=== PATIENT | female | born 1985 | race Hispanic/Latino ===

== ENCOUNTER 2017-02-10 07:30 | Emergency (ER) | payer BC ==
[2017-02-10 07:52] VITALS: TEMP 97.2
[2017-02-10] MEDS: Sodium Chloride 0.9% 1,000 ML IV STA ×2 (08:34→10:46)
--- NOTE | 2017-02-10 08:41 | ED PDOC ---
Syncope/Near Syncope/Dizziness Time Seen by Provider: 02/10/17 07:40 Chief Complaint (Nursing): Syncope Chief Complaint (Provider): Syncope History Per: Patient History/Exam Limitations: no limitations Onset/Duration Of Symptoms: Mins Current Symptoms Are (Timing): Gone Now Number Of Syncopal Episodes: 1 Activity At Onset Of Symptoms: Sitting Fall Associated With With Symptoms: No Additional Complaint(s): 31yo female with no known past medical history, presents to the ED for evaluation after a syncopal episode prior to arrival. Patient reports she was standing on the bus and "felt it coming on" and when she sat down, she had a syncopal episode. Patient denies any head injury due to the syncopal episode. Of note, patient states she has been feeling nauseous since yesterday and did not have much PO food intake yesterday. She denies any fever, chills, vomiting, headache, neck pain, chest pain, shortness of breath. Of note, patient is currently taking oral contraceptive pills. No other complaints. Past Medical History Reviewed: Historical Data, Nursing Documentation, Vital Signs Vital Signs: Last Vital Signs Temp 97.2 F L 02/10/17 07:44 Pulse 74 02/10/17 07:44 Resp 16 02/10/17 07:44 BP 95/56 L 02/10/17 07:44 Pulse Ox 100 02/10/17 07:44 - Medical History PMH: No Chronic Diseases - Surgical History Surgical History: Tonsillectomy - Family History Family History: States: No Known Family Hx - Living Arrangements Living Arrangements: With Family - Social History Current smoker - smoking cessation education provided: No Ex-Smoker (has not smoked in the last 12 months): No Alcohol: Social Drugs: Denies - Home Medications Home Medications: Ambulatory Orders Medication Instructions Recorded Acetaminophen/Oxycodone Hydr 1 tab PO TID PRN #6 tab 12/24/13 [Percocet 325 mg-5 mg] Nitrofurantoin Macrocrystals 100 mg PO BID #10 cap 12/24/13 [Macrobid] Phenazopyridine HCl [Pyridium] 100 mg PO BID PRN 5 Days tab 12/24/13 - Allergies Allergies/Adverse Reactions: Allergies Allergy/AdvReac Type Severity Reaction Status Date / Time Sulfa (Sulfonamide Allergy RASH Verified 02/10/17 07:44 Antibiotics) Review of Systems ROS Statement: Except As Marked, All Systems Reviewed And Found Negative Constitutional: Negative for: Fever, Chills Cardiovascular: Negative for: Chest Pain Respiratory: Negative for: Shortness of Breath Gastrointestinal: Positive for: Nausea. Negative for: Vomiting Musculoskeletal: Negative for: Neck Pain Neurological: Positive for: Other (syncopal episode) Physical Exam - Reviewed Nursing Documentation Reviewed: Yes Vital Signs Reviewed: Yes - Physical Exam Appears: Positive for: Non-toxic, No Acute Distress Skin: Positive for: Warm, Dry (dry lips) Eye Exam: Positive for: Normal appearance, EOMI, PERRL Neck: Positive for: Supple Cardiovascular/Chest: Positive for: Regular Rate, Rhythm Respiratory: Positive for: Normal Breath Sounds. Negative for: Respiratory Distress Neurologic/Psych: Positive for: Alert, Oriented. Negative for: Motor/Sensory Deficits - Laboratory Results Result Diagrams: 02/10/17 08:45 02/10/17 08:45 - ECG ECG: Positive for: Interpreted By Me, Viewed By Me ECG Rhythm: Positive for: Normal QRS, Normal ST Segment, Sinus Rhythm. Negative for: ST/T Changes Rate: 71 O2 Sat by Pulse Oximetry: 100 (RA) Pulse Ox Interpretation: Normal Medical Decision Making Medical Decision Making: Time: 802 Impression: Dehydration Plan: -- Labs -- IV Fluids -- Zofran 4 mg PO Reassess Scribe Attestation: Documented by Jackie Velasco acting as a scribe for Sariah Dejesus MD. Provider Attestation: All medical record entries made by the Scribe were at my direction and personally dictated by me. I have reviewed the chart and agree that the record accurately reflects my personal performance of the history, physical exam, medical decision making, and the department course for this patient. I have also personally directed, reviewed, and agree with the discharge instructions and disposition. patient is feeling better. She has been able to urinate and does not feel dizzy when she sits up. Disposition - Clinical Impression Clinical Impression: Dehydration - Patient ED Disposition Is Patient to be Admitted: No Doctor Will See Patient In The: Office Counseled Patient/Family Regarding: Diagnosis, Need For Followup - Disposition Disposition: Routine/Home Disposition Time: 12:00 Condition: IMPROVED Instructions: Dehydration (ED) Forms: [facility] (Fijian) - POA Present On Arrival: None
[2017-02-10 09:01] LABS: BASO % 0.6 % (0.0-2.0); EOS # 0.1 K/uL (0.0-0.7); EOS % 1.8 % (0.0-4.0); HEMATOCRIT 41.5 % (34.0-47.0); LYMPH # 0.9 K/uL (1.0-4.3); LYMPH % 17.8 % (20.0-40.0); MEAN CELL VOLUME 90.5 fl (81.0-99.0); MEAN CORPUSCULAR HEMOGLOBIN 30.1 pg (27.0-31.0); MEAN CORPUSCULAR HGB CONC 33.2 g/dL (33.0-37.0); MEAN PLATELET VOLUME 8.5 fl (7.2-11.7); MONO # 0.4 K/uL (0.0-0.8); MONO % 8.4 % (0.0-10.0); NEUT # 3.5 K/uL (1.8-7.0); NEUT % 71.4 % (50.0-75.0); NRBC % 0.1 % (0.0-0.0); RED CELL DISTRIBUTION WIDTH 12.1 % (11.5-14.5)
[2017-02-10 09:12] LABS: ALCOHOL SERUM < 10 mg/dl (0-10); BLOOD UREA NITROGEN 10 mg/dl (7-17); CALCIUM 8.2 mg/dL (8.4-10.2); CARBON DIOXIDE 25 mmol/L (22-30); CHLORIDE 103 mmol/L (98-107); GFR AFRICAN-AMERICAN > 60; GLUCOSE,RANDOM 91 mg/dL (65-105); POTASSIUM 3.9 MMOL/L (3.6-5.0); SODIUM 137 mmol/l (132-148)
--- NOTE | 2017-02-10 11:41 | CARD ---
APPROVED REPORT EKG Measurement Heart [id number] ID [id number] <Conclusion> Normal sinus rhythm Rightward axis Borderline ECG
[2017-02-10 12:05] VITALS: BP 96/58; RESP 20
[2017-02-10 12:46] VITALS: PULSE 71; O2SAT 100
== END 2017-02-10 13:00 | disposition home or self-care (01) ==
LOC: H.ER 07:30
DX: E86.0 Dehydration (principal); R55 Syncope and collapse
CPT/HCPCS: 80048; 81025; 82948; 85025; 93005; 96361; 96374; 99285; G0480; J2405; J7040